=== PATIENT | female | born 1990 | race Caucasian/White ===

== ENCOUNTER 2018-09-02 23:11 | Emergency (ER) | payer SELFPAY ==
[2018-09-03] MEDS: predniSONE 20 MG TAB PO (01:34)
[2018-09-03 01:52] LABS: MONOTEST Negative (NEG)
== END 2018-09-03 03:08 | disposition home or self-care (01) ==
LOC: FTE 23:11
DX: J02.0 Streptococcal pharyngitis (principal)
CPT/HCPCS: 81025; 86308; 87880; 99283